=== PATIENT | male | born 2000 | race Caucasian/White ===

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

== ENCOUNTER 2019-11-20 00:08 | Emergency (ER) | payer MEDICAID ==
[~2019-11-20] VITALS: Ht 190.5 cm; Wt 90.3 kg
[2019-11-20 00:49] VITALS: BP 117/71
== END 2019-11-20 00:50 | disposition home or self-care (01) ==
LOC: ED 00:08
DX: R20.0 Anesthesia of skin (principal); Z13.89 Encounter for screening for other disorder

== ENCOUNTER 2020-11-14 02:12 | Emergency (ER) | payer MEDICAID, SELFPAY ==
[~2020-11-14] VITALS: Ht 170.2 cm; Wt 65.8 kg
[2020-11-14 02:17] VITALS: Ht 170.2 cm; Wt 65.8 kg
[2020-11-14 03:54] VITALS: BP 139/71
== END 2020-11-14 03:54 | disposition home or self-care (01) ==
LOC: ED 02:12
DX: U07.1 COVID-19 (principal); H57.13 Ocular pain, bilateral
CPT/HCPCS: U0003

== ENCOUNTER 2020-11-14 10:37 | Emergency (ER) | payer MEDICAID | END 2020-11-14 10:45 | disposition left against medical advice (07) | LOC: ED 10:37 | DX: Z53.21 Procedure and treatment not carried out due to patient leaving prior to being seen by health care provider (principal) ==

== ENCOUNTER 2020-11-23 02:52 | Emergency (ER) | payer MEDICAID ==
[~2020-11-23] VITALS: Ht 190.5 cm; Wt 77.1 kg
[2020-11-23 02:54] VITALS: BP 136/920; Ht 190.5 cm; Wt 77.1 kg
== END 2020-11-23 04:16 | disposition home or self-care (01) ==
LOC: ED 02:52
DX: F41.9 Anxiety disorder, unspecified (principal); Z20.828 Contact with and (suspected) exposure to other viral communicable diseases